=== PATIENT | male | born 1980 | race African-American/Black ===

== ENCOUNTER 2017-08-02 12:11 | Emergency (ER) | payer SELFPAY ==
[2017-08-02] MEDS ORDERED: KETOROLAC 60 MG/2 ML VIAL IM STA (12:54)
--- NOTE | 2017-08-02 12:55 | ED Physician Documentation ---
History of Present Illness - Stated complaint Stated Complaint: FOOT INJ - Chief complaint Chief Complaint: Ext Problem - History obtained from History obtained from: Patient, Friend - History of Present Illness Pain level max: 10 Pain level now: 10 - Additonal information Additional information: Patient is a 37-year-old gentleman from [facility] who states that he injured the left ankle when he slipped in a hole in [facility] one year ago. States that since that time he has had intermittent pain to the ankle. Yesterday went for a long bike ride and does not normally right a bicycle, today was unable to walk on the left ankle. Has not taken anything for the pain. No fevers. No swelling. Better with rest. Worse with movement. Review of Systems Constitutional: denies: Fever, Chills Respiratory: denies: Cough GI: denies: Nausea, Vomiting, Diarrhea Skin: denies: Rash Musculoskeletal: denies: Neck pain, Back pain Neurologic: denies: Headache PD PAST MEDICAL HISTORY - Past Medical History Past Medical History: No - Past Surgical History Past Surgical History: No - Present Medications Home Medications: Ambulatory Orders Medication Instructions Recorded Confirmed Meloxicam [Mobic] 7.5 mg PO BID PRN #20 tablet 08/02/17 - Allergies Allergies/Adverse Reactions: Allergies Allergy/AdvReac Type Severity Reaction Status Date / Time No Known Drug Allergies Allergy Verified 08/02/17 12:16 - Social History Does the pt smoke?: No Smoking Status: Never smoker Does the pt drink ETOH?: No Does the pt have substance abuse?: No PD ED PE NORMAL - Vitals Vital signs reviewed: Yes - General General: Alert and oriented X 3, No acute distress - Derm Derm: Warm and dry - Extremities Extremities: Other (Mild tenderness to palpation along the medial aspect of the left ankle. No bony tenderness. Limited range of motion secondary to pain. Pain is worse with active range of motion and passive range of motion. No joint effusion. Normal skin. No evidence of infection) - Neuro Neuro: Alert and oriented X 3 - Psych Psych: Normal mood, Normal affect Results - Vitals Vitals: Vital Signs - 24 hr 08/02/17 08/02/17 12:14 13:44 Temperature 36.4 C L 36.8 C Heart Rate 65 60 Respiratory 16 18 Rate Blood Pressure 117/76 109/76 O2 Saturation 99 100 - Rads (name of study) L ankle xray Radiology: Prelim report reviewed, EMP read contemporaneously, See rad report ( Subchondral lucency in lateral talar dome. Differential diagnosis includes degenerative subchondral geode or osteochondritis dissecans. No acute fracture or subluxation. ) PD MEDICAL DECISION MAKING - ED course Complexity details: reviewed results, re-evaluated patient, considered differential, d/w patient ED course: Patient is a 37 year old male with a subchondral geode vs osteochondritis dessicans in the L ankle. No evidence of acute fracture or dislocation. No septic joint. No gout. Pain improved with toradol. Placed in a walking boot and will have him follow-up with orthopedics. Pain well controlled. Patient counseled regarding signs and symptoms for which I believe and urgent re- evaluation would be necessary. Patient with good understanding of and agreement to plan and is comfortable going home at this time This document was made in part using voice recognition software. While efforts are made to proofread this document, sound alike and grammatical errors may occur. Departure - Departure Disposition: 01 Home, Self Care Clinical Impression: Osteochondritis dissecans Condition: Good Instructions: ED Degenerative Joint Disease Follow-Up: [facility] [Provider Group] - Within 1 week Prescriptions: Meloxicam [Mobic] 7.5 mg PO BID PRN #20 tablet PRN Reason: pain Comments: Return if you worsen. You can wear the boot for the next few days, then start to gently range your ankle to maintain mobility. You should not be in the boot all the time. Make sure to follow up with orthopedics closely for further care. Discharge Date/Time: 08/02/17 13:44
[2017-08-02] MEDS ORDERED: KETOROLAC 60 MG/2 ML VIAL ONE (13:01)
--- NOTE | 2017-08-02 13:09 | XRAY Preliminary Report ---
Exam: XR Ankle 3 View LT IMPRESSION: 1. Subchondral lucency in lateral talar dome. Differential diagnosis includes degenerative subchondra l geode or osteochondritis dissecans. No acute fracture or subluxation. [facility] SITE ID: [id number]
--- NOTE | 2017-08-02 13:12 | XRAY Report ---
EXAM: LEFT ANKLE RADIOGRAPHY EXAM DATE: 08/02/2017 01:01 PM. CLINICAL HISTORY: Old injury 1 year ago, pain today with flex/extens. COMPARISON: None. TECHNIQUE: 3 views. FINDINGS: Bones: There is a subchondral lucency in the lateral aspect of the talar dome. The overlying cortex a ppears intact on radiograph. No acute fracture. Joints: Normal. No effusion. No subluxations. The ankle mortise is normally aligned. Soft Tissues: Normal. No soft tissue swelling. IMPRESSION: 1. Subchondral lucency in lateral talar dome. Differential diagnosis includes degenerative subchondra l geode or osteochondritis dissecans. No acute fracture or subluxation. [facility] Referring Provider Line: [phone] SITE ID: [id number]
[2017-08-02 13:45] VITALS: BP 109/76
== END 2017-08-02 13:44 | disposition home or self-care (01) ==
LOC: ED 12:11
DX: M93.272 Osteochondritis dissecans, left ankle and joints of left foot (principal)
CPT/HCPCS: 96372; 99283

== ENCOUNTER 2018-03-07 15:28 | Outpatient (CLI) | payer MEDICAID ==
--- NOTE | 2018-03-07 16:07 | XRAY Report ---
THREE VIEW LEFT ANKLE: 03/07/2018 CLINICAL INDICATION: Joint pain. COMPARISON: 08/02/2017. FINDINGS: AP, lateral, oblique views of the left ankle demonstrate no evidence of fracture or dislocation. The joint spaces are preserved. Focal lucency in the lateral talar dome is again noted, likely representing a small osteochondral defect. If clinically warranted, MRI may be helpful in further evaluation. IMPRESSION: POSSIBLE OSTEOCHONDRAL DEFECT IN THE TALAR DOME, STABLE. NO EVIDENCE OF ACUTE FRACTURE. TD: 03/07/2018 16:06
== END 2018-03-07 15:29 | disposition home or self-care (01) ==
LOC: EDBD → DI.S 15:28
PROVIDERS: ATTEND Nurse Practitioner Family
DX: M25.572 Pain in left ankle and joints of left foot (principal)

== ENCOUNTER 2018-04-12 09:38 | Outpatient (CLI) | payer MEDICAID ==
--- NOTE | 2018-04-12 12:35 | CT Report ---
EXAM: LEFT KNEE CT WITHOUT CONTRAST EXAM DATE: 04/12/2018 10:06 AM. CLINICAL HISTORY: Nondisplaced dome fracture of unspecified talus. COMPARISON: Radiographs 03/07/2018. TECHNIQUE: Thin-section axial images were acquired of the knee without contrast. Post-processing: Cor onal and sagittal reformats. Other: None. In accordance with CT protocol optimization, one or more of the following dose reduction techniques w ere utilized for this exam: automated exposure control, adjustment of mA and/or KV based on patient s ize, or use of iterative reconstructive technique. FINDINGS: Bones and articular surfaces: There is an area of irregularity of the subchondral bone plate with clu stered subchondral cyst formation at the lateral dome of the talus measuring approximately 1.0 x 1.4 cm. Smaller focus of defect at the subchondral bone plate with underlying subchondral cyst formation at the medial dome of the talus approximately 0.3 cm [id number] and 1.2 cm anteroposterior. Flat jim ne fragment abutting the anterior margin of the dome of the talus approximately 0.9 x 0.2 x 0.6 cm. T his may represent a chronic displaced osteochondral fragment or other avulsion fragment. No acute fra cture identified. Musculotendinous structures: Visualized flexor and extensor tendons appear intact. Achilles tendon an d plantar fascia appear intact. No muscle atrophy or fatty replacement within the [id number]. IMPRESSION: 1. Osteochondral lesions over the medial greater than lateral dome of the talus. 2. Chronic-appearing bone fragment at the anterior margin of the tibiotalar joint most consistent wit h displaced osteochondral fragment measuring 0.9 x 0.2 x 0.6 cm. 3. No acute fracture identified. [facility] Referring Provider Line: [phone] SITE ID: [id number]
== END 2018-04-12 09:39 | disposition home or self-care (01) ==
LOC: DI 09:38
PROVIDERS: ATTEND Orthopaedic Surgery
DX: S92.14 Dome fracture of talus (principal)

== ENCOUNTER 2018-05-03 08:00 | Outpatient (CLI) | payer MEDICAID ==
[2018-05-04 11:50] LABS: CHOL/HDL RATIO 3.8 (<5.0); CHOLESTEROL 138 mg/dL; HDL CHOLESTEROL 36 mg/dL; LDL CHOLESTEROL,CALCULATED 93 mg/dL; LDL/HDL RATIO 2.6 (<3.6); VLDL CHOLESTEROL 9 mg/dL
[2018-05-05 13:42] LABS: HEPATITIS C ANTIBODY NON-REACTIVE (NON-REACTIVE)
[2018-05-05 14:37] LABS: HIV AG/AB 4TH GEN NON-REACTIVE (NON-REACTIVE)
[2018-05-06 11:56] LABS: HSV 2 IGG TYPE SPECIFIC AB <0.90 index
== END 2018-05-03 08:01 | disposition home or self-care (01) ==
LOC: LAB.F 08:00
PROVIDERS: ATTEND Nurse Practitioner Family
DX: Z13.220 Encounter for screening for lipoid disorders (principal); Z72.51 High risk heterosexual behavior
CPT/HCPCS: 36415; 80061; 81599; 83721; 86695; 86696; 86803; 87389; 87491; 87591

== ENCOUNTER 2018-05-03 19:51 | Emergency (ER) | payer MEDICAID ==
[2018-05-03 20:02] VITALS: BP 119/72
[2018-05-03 21:28] LABS: BASOPHILS % (AUTO) 0.6 %; HGB - HEMOGLOBIN 14.9 g/dL (14.0-18.0); LYMPHOCYTES # (AUTO) 1.4 10^3/uL (1.5-3.5); LYMPHOCYTES % (AUTO) 40.1 %; MEAN CORPUSCULAR HEMOGLOBIN 26.8 pg (27.0-31.0); MEAN CORPUSCULAR HGB CONC 32.5 g/dL (32.0-36.0); MEAN CORPUSCULAR VOLUME 82.3 fL (80.0-94.0); MEAN PLATELET VOLUME 8.1 fL (7.4-11.4); MONOCYTES # (AUTO) 0.4 10^3/uL (0.0-1.0); MONOCYTES % (AUTO) 11.9 %; NEUTROPHILS # (AUTO) 1.7 10^3/uL (1.5-6.6); NEUTROPHILS % (AUTO) 46.4 %; PLT - PLATELET COUNT 151 10^3/uL (130-450); RED BLOOD COUNT 5.58 10^6/uL (4.70-6.10); RED CELL DISTRIBUTION WIDTH 14.8 % (12.0-15.0); WHITE BLOOD COUNT 3.6 x10^3/uL (4.8-10.8)
[2018-05-03 21:32] LABS: INR 1.3 (0.8-1.2); PT - PROTHROMBIN TIME 14.2 secs (9.9-12.6)
[2018-05-03 21:39] LABS: ALBUMIN 4.2 g/dL (3.2-5.5); ALBUMIN/GLOBULIN RATIO 1.2 (1.0-2.2); BILIRUBIN,TOTAL 0.8 mg/dL (0.2-1.0); CALCIUM 9.3 mg/dL (8.5-10.3); CREATININE 0.8 mg/dL (0.6-1.2); TOTAL PROTEIN 7.6 g/dL (6.7-8.2)
--- NOTE | 2018-05-03 21:48 | ED Physician Documentation ---
PD HPI HEENT - Stated complaint Stated Complaint: NOSE BLEED - Chief complaint Chief Complaint: Neuro - History obtained from History obtained from: Patient - History of Present Illness Timing - onset: Today Timing - details: Intermittant Location: Nose Similar symptoms before: No diagnosis Recently seen: Clinic - Additional information Additional information: Patient is a 38 year old male who is presenting to the emergency department for nosebleed. Patient states that it has happened four times over the last couple for days. Patient denies any trauma and states that the symptoms go away with mild pressure. Patient saw his pmd who told him to come to the emergency department. Upon initial evaluation in the emergency department patient was well appearing and in no distress. there was no active bleeding. Review of Systems Ten Systems: 10 systems reviewed and negative Nose: reports: Epistaxis PD PAST MEDICAL HISTORY - Past Surgical History Past Surgical History: No - Present Medications Home Medications: Ambulatory Orders Medication Instructions Recorded Confirmed Meloxicam [Mobic] 7.5 mg PO BID PRN #20 tablet 08/02/17 - Allergies Allergies/Adverse Reactions: Allergies Allergy/AdvReac Type Severity Reaction Status Date / Time No Known Drug Allergies Allergy Verified 08/02/17 12:16 - Social History Does the pt smoke?: No Smoking Status: Never smoker Does the pt drink ETOH?: No Does the pt have substance abuse?: No PD ED PE NORMAL - Vitals Vital signs reviewed: Yes - General General: Alert and oriented X 3, No acute distress - HEENT HEENT: Atraumatic, Moist mucous membranes - Cardiac Cardiac: RRR - Respiratory Respiratory: No respiratory distress - Abdomen Abdomen: Non distended - Derm Derm: Normal color - Extremities Extremities: No deformity - Neuro Neuro: Alert and oriented X 3, No motor deficit, Normal speech Eye Opening: Spontaneous PD ED PE EXPANDED - HEENT HEENT: No: Right nares epsitaxis, Left nares epistaxis Results - Vitals Vitals: Vital Signs - 24 hr 05/03/18 19:57 Heart Rate 59 L Respiratory 16 Rate Blood Pressure 119/72 O2 Saturation 100 Oxygen O2 Source Room air - Labs Labs: Laboratory Tests 05/03/18 05/03/18 05/03/18 21:22 21:22 21:22 WBC 3.6 L RBC 5.58 Hgb 14.9 Hct 45.9 MCV 82.3 MCH 26.8 L MCHC 32.5 RDW 14.8 Plt Count 151 MPV 8.1 Neut # (Auto) 1.7 Lymph # (Auto) 1.4 L [place] # (Auto) 0.4 Eos # (Auto) 0.0 Baso # (Auto) 0.0 Absolute Nucleated RBC 0.00 Nucleated RBC % 0.1 PT 14.2 H INR 1.3 H APTT 27.2 Sodium 138 Potassium 3.4 L Chloride 104 Carbon Dioxide 27 Anion Gap 7.0 BUN 15 Creatinine 0.8 Estimated GFR (MDRD) 132 Glucose 111 H Calcium 9.3 Total Bilirubin 0.8 AST 24 ALT 23 Alkaline Phosphatase 42 Total Protein 7.6 Albumin 4.2 Globulin 3.4 Albumin/Globulin Ratio 1.2 Lipase 18 L PD MEDICAL DECISION MAKING - ED course Complexity details: reviewed old records, reviewed results, re-evaluated patient , considered differential, d/w patient ED course: Patient was seen and examined at bedside. patient was well appearing and in no distress. patient's diagnostics were all within normal limits. Patient required no further work up and was stable for discharge with outpatient followup. - Sepsis Event Vital Signs: Vital Signs - 24 hr 05/03/18 19:57 Heart Rate 59 L Respiratory 16 Rate Blood Pressure 119/72 O2 Saturation 100 Oxygen O2 Source Room air Departure - Departure Disposition: 01 Home, Self Care Clinical Impression: Epistaxis not due to trauma Condition: Good Instructions: ED Nosebleed Follow-Up: primary,care provider [Other] - Within 1 week Comments: Your diagnostics today were within normal limits. there is no sign of significant clotting disorder. You should keep the inside of your nose moist with vaseline, or a vaseline type solution. You should follow up with your doctor if your symptoms persist. You may return to the emergency department at any time for new, worsening or uncontrollable symptoms. Discharge Date/Time: 05/03/18 22:00
== END 2018-05-03 22:00 | disposition home or self-care (01) ==
LOC: ED 19:51
DX: R04.0 Epistaxis (principal); Z13.220 Encounter for screening for lipoid disorders; Z72.51 High risk heterosexual behavior
CPT/HCPCS: 36415; 80053; 80061; 81599; 83690; 83721; 85025; 85610; 85730; 86592; 86695; 86696; 86803; 87389; 87491; 87591; 99283

== ENCOUNTER 2019-01-22 21:27 | Emergency (ER) | payer MEDICAID ==
[2019-01-22] MEDS ORDERED: ACETAMINOPHEN 1,000 MG/100 ML 100 ML IV STA (21:37)
[2019-01-22] MEDS ORDERED: SODIUM CHLORIDE 0.9% 1,000 ML IV ONE (21:37)
[2019-01-22] MEDS ORDERED: HYDROmorphone 1 MG/ML CARPUJECT IVP STA (21:37)
--- NOTE | 2019-01-22 21:42 | ED Physician Documentation ---
PD HPI ALTERED MENTAL STATUS - Stated complaint Stated Complaint: BACK PX - Chief complaint Chief Complaint: Fever - History obtained from History obtained from: Friend, EMS - History of Present Illness Timing - onset: Today Timing - details: Still present, Still present in ED Quality / character: Agitated Associated symptoms: Fever Basline status: Alert and oriented X 3, Ambulatory, Independent Recently seen: Not recently seen - Additional information Additional information: BIBA. Patient is unable to contribute to HPI/ROS or cooperate with physical exam due to agitation and confusion. Per patient's friend (who is at bedside in ED), patient lives in a trailer on friend's property. Patient called the friend too saying he felt "sick" and wanted to go to the hospital. Patient's friend says he has known patient for approximately 2 years and has never seen him act anything like this. Friend says patient is quite sabianism and completely eschews alcohol and drugs. Review of Systems Unable to obtain: AMS PD PAST MEDICAL HISTORY - Past Medical History Past Medical History: No - Past Surgical History Past Surgical History: No - Present Medications Home Medications: Ambulatory Orders Medication Instructions Recorded Confirmed Meloxicam [Mobic] 7.5 mg PO BID PRN #20 tablet 08/02/17 - Allergies Allergies/Adverse Reactions: Allergies Allergy/AdvReac Type Severity Reaction Status Date / Time No Known Drug Allergies Allergy Verified 08/02/17 12:16 - Social History Does the pt smoke?: No Smoking Status: Never smoker Does the pt drink ETOH?: No Does the pt have substance abuse?: No PD ED PE NORMAL - Vitals Vital signs reviewed: Yes - General General: Well developed/nourished, Other (awake, alert. keeps eyes closed. frequently shaking in bed (not rhythmic or coordinated movements), occasionally calling out as if uncomfortable or in pain. Occasionally asks for his mother to be called to tell her he is ok.) - HEENT HEENT: PERRL, EOMI - Neck Neck: Supple, no meningeal sign, No bony TTP - Cardiac Cardiac: No murmur - Respiratory Respiratory: No respiratory distress, Clear bilaterally - Abdomen Abdomen: Soft, Non tender - Back Back: No spinal TTP - Derm Derm: Normal color, Other (hot to touch; hypersenstive to any touch (calls out in pain whenever I put my hand on his skin; he says my hand is cold)) - Extremities Extremities: No deformity, Normal ROM s pain, No edema - Neuro Neuro: No motor deficit, No sensory deficit Eye Opening: To Voice Motor: Localizes to Pain Verbal: Confused (asked where he is right now, he says "in the car") GCS Score: 12 - Psych Psych: Other (odd behavior; asked to open eyes, he opens mouth. When I repeat, he says "that is my eye and it is open". I open his eyes and he says "that is my mouth". ) PD ED PE EXPANDED - Eyes Eyes: Injected conj/sclera - Cardiac Cardiac: Tachy Results - Vitals Vitals: Vital Signs - 24 hr 01/22/19 01/22/19 01/22/19 21:30 22:03 23:01 Temperature 38.3 C H 39.4 C H 38.6 C H Heart Rate 121 H 117 H 115 H Respiratory 28 H 24 24 Rate Blood Pressure 143/94 H 126/70 103/66 O2 Saturation 99 99 99 01/23/19 01/23/19 01/23/19 00:24 01:58 02:57 Temperature 37.7 C H Heart Rate 97 96 88 Respiratory 24 25 H 20 Rate Blood Pressure 124/79 128/52 L 112/87 H O2 Saturation 100 99 98 01/23/19 01/23/19 04:00 05:11 Temperature 37.7 C H Heart Rate 95 93 Respiratory 20 20 Rate Blood Pressure 126/94 H 121/89 H O2 Saturation 97 98 Oxygen O2 Source Room air - Labs Labs: Microbiology 01/23/19 02:37 CSF Culture - Preliminary Cerebral Spinal Fluid 01/23/19 02:37 Gram Stain - Final Cerebral Spinal Fluid Laboratory Tests 01/22/19 01/22/19 01/22/19 21:47 21:47 22:05 WBC 6.3 RBC 5.68 Hgb 15.1 Hct 45.0 MCV 79.3 L MCH 26.6 L MCHC 33.6 RDW 14.1 Plt Count 143 MPV 8.6 Neut # (Auto) 4.5 Lymph # (Auto) 0.7 L [place] # (Auto) 1.1 H Eos # (Auto) 0.0 Baso # (Auto) 0.0 Absolute Nucleated RBC 0.00 Nucleated RBC % 0.1 Sodium 134 L Potassium 3.5 Chloride 100 L Carbon Dioxide 24 Anion Gap 10.0 BUN 19 Creatinine 1.0 Estimated GFR (MDRD) 101 Glucose 95 Lactic Acid 1.6 Calcium 8.9 Total Bilirubin 0.8 AST 36 ALT 27 Alkaline Phosphatase 45 Total Creatine Kinase CK-MB (CK-2) Troponin I Total Protein 8.1 Albumin 4.5 Globulin 3.6 Albumin/Globulin Ratio 1.3 Lipase 22 TSH Urine Color Urine Clarity Urine pH Ur Specific [place] Urine Protein Urine Glucose (UA) Urine Ketones Urine Occult Blood Urine Nitrite Urine Bilirubin Urine Urobilinogen Ur Leukocyte Esterase Ur Microscopic Review Urine Culture Comments CSF Color CSF Clarity Xanthrochromic CSF WBC CSF RBC CSF Cell Count Tube # CSF Glucose CSF Total Protein Salicylates < 6.0 Urine Opiates Screen Ur Oxycodone Screen Urine Methadone Screen Ur Propoxyphene Screen Acetaminophen < 10 L Ur Barbiturates Screen Ur Tricyclics Screen Ur Phencyclidine Scrn Ur Amphetamine Screen U Methamphetamines Scrn U Benzodiazepines Scrn Urine Cocaine Screen U Cannabinoids Screen Ethyl Alcohol < 5.0 Influenza A (Rapid) Influenza B (Rapid) 01/22/19 01/22/19 01/22/19 22:05 22:05 22:05 WBC RBC Hgb Hct MCV MCH MCHC RDW Plt Count MPV Neut # (Auto) Lymph # (Auto) [place] # (Auto) Eos # (Auto) Baso # (Auto) Absolute Nucleated RBC Nucleated RBC % Sodium Potassium Chloride Carbon Dioxide Anion Gap BUN Creatinine Estimated GFR (MDRD) Glucose Lactic Acid Calcium Total Bilirubin AST ALT Alkaline Phosphatase Total Creatine Kinase 409 H CK-MB (CK-2) 3.0 Troponin I < 0.04 Total Protein Albumin Globulin Albumin/Globulin Ratio Lipase TSH 1.90 Urine Color Urine Clarity Urine pH Ur Specific [place] Urine Protein Urine Glucose (UA) Urine Ketones Urine Occult Blood Urine Nitrite Urine Bilirubin Urine Urobilinogen Ur Leukocyte Esterase Ur Microscopic Review Urine Culture Comments CSF Color CSF Clarity Xanthrochromic CSF WBC CSF RBC CSF Cell Count Tube # CSF Glucose CSF Total Protein Salicylates Urine Opiates Screen Ur Oxycodone Screen Urine Methadone Screen Ur Propoxyphene Screen Acetaminophen Ur Barbiturates Screen Ur Tricyclics Screen Ur Phencyclidine Scrn Ur Amphetamine Screen U Methamphetamines Scrn U Benzodiazepines Scrn Urine Cocaine Screen U Cannabinoids Screen Ethyl Alcohol Influenza A (Rapid) Influenza B (Rapid) 01/22/19 01/22/19 01/23/19 22:05 23:35 02:37 WBC RBC Hgb Hct MCV MCH MCHC RDW Plt Count MPV Neut # (Auto) Lymph # (Auto) [place] # (Auto) Eos # (Auto) Baso # (Auto) Absolute Nucleated RBC Nucleated RBC % Sodium Potassium Chloride Carbon Dioxide Anion Gap BUN Creatinine Estimated GFR (MDRD) Glucose Lactic Acid Calcium Total Bilirubin AST ALT Alkaline Phosphatase Total Creatine Kinase CK-MB (CK-2) Troponin I Total Protein Albumin Globulin Albumin/Globulin Ratio Lipase TSH Urine Color YELLOW Urine Clarity CLEAR Urine pH 7.0 Ur Specific [place] 1.010 Urine Protein NEGATIVE Urine Glucose (UA) NEGATIVE Urine Ketones NEGATIVE Urine Occult Blood NEGATIVE Urine Nitrite NEGATIVE Urine Bilirubin NEGATIVE Urine Urobilinogen 0.2 (NORMAL) Ur Leukocyte Esterase NEGATIVE Ur Microscopic Review NOT INDICATED Urine Culture Comments NOT INDICATED CSF Color COLORLESS CSF Clarity CLEAR Xanthrochromic ABSENT CSF WBC 0 CSF RBC 15 H CSF Cell Count Tube # CSF TUBE# 3 CSF Glucose 66 CSF Total Protein 28 Salicylates Urine Opiates Screen NEGATIVE Ur Oxycodone Screen NEGATIVE Urine Methadone Screen NEGATIVE Ur Propoxyphene Screen NEGATIVE Acetaminophen Ur Barbiturates Screen NEGATIVE Ur Tricyclics Screen NEGATIVE Ur Phencyclidine Scrn NEGATIVE Ur Amphetamine Screen NEGATIVE U Methamphetamines Scrn NEGATIVE U Benzodiazepines Scrn NEGATIVE Urine Cocaine Screen NEGATIVE U Cannabinoids Screen NEGATIVE Ethyl Alcohol Influenza A (Rapid) Negative Influenza B (Rapid) Negative - Rads (name of study) CT head Radiology: Prelim report reviewed, See rad report chest xray Radiology: Prelim report reviewed, See rad report PD MEDICAL DECISION MAKING - ED course Complexity details: reviewed results, re-evaluated patient, considered differential, d/w patient ED course: CXR, UA, blood tests, flu swab are nondiagnostic. He has no abdominal tenderness and abdomen is soft and not distended. There are no abnormalities of skin that might be source for fever. Considering his high fever without a source and altered mental status, lumbar puncture was attempted by me. Unfortunately, my attempt was unsuccessful and thus I consulted anesthesiology and Dr. Mendieta came to ED and performed the LP successfully. CSF testing is also reassuring. By this time (several hours in ED), he exhibited gradually improving mental status and by the time of the CSF results, he is awake, alert, and conversant. He answers appropriately and only c/o fatigue and generalized aches. He is able to ambulate to and from bathroom without difficulty or assistance. He does not recall coming to ED last night. I reviewed test results with patient. He is comfortable with d/c home and understands he needs to return if worse in any way. Afebrile at time of discharge. Departure - Departure Disposition: 01 Home, Self Care Clinical Impression: Fever Condition: Good Instructions: ED Fever Unconf Cause, ED Fever Control Follow-Up: [facility] [Provider Group] [facility] [Provider Group] Discharge Date/Time: 01/23/19 05:57
[2019-01-22] MEDS ORDERED: LORazepam 2 MG/ML VIAL IVP STA (21:50)
[2019-01-22 21:51] LABS: BASOPHILS % (AUTO) 0.4 %; EOSINOPHILS % (AUTO) 0.2 %; HGB - HEMOGLOBIN 15.1 g/dL (14.0-18.0); LYMPHOCYTES # (AUTO) 0.7 10^3/uL (1.5-3.5); LYMPHOCYTES % (AUTO) 11.2 %; MEAN CORPUSCULAR HEMOGLOBIN 26.6 pg (27.0-31.0); MEAN CORPUSCULAR HGB CONC 33.6 g/dL (32.0-36.0); MEAN CORPUSCULAR VOLUME 79.3 fL (80.0-94.0); MEAN PLATELET VOLUME 8.6 fL (7.4-11.4); MONOCYTES # (AUTO) 1.1 10^3/uL (0.0-1.0); MONOCYTES % (AUTO) 17.3 %; NEUTROPHILS # (AUTO) 4.5 10^3/uL (1.5-6.6); NEUTROPHILS % (AUTO) 70.9 %; PLT - PLATELET COUNT 143 10^3/uL (130-450); RED BLOOD COUNT 5.68 10^6/uL (4.70-6.10); RED CELL DISTRIBUTION WIDTH 14.1 % (12.0-15.0); WHITE BLOOD COUNT 6.3 x10^3/uL (4.8-10.8)
--- NOTE | 2019-01-22 22:10 | XRAY Report ---
Reason: fever Procedure Date: 01/22/2019 Accession Number: [id number] / [id number] Procedure: XR - Chest 1 View X-Ray CPT Code: 92463 FULL RESULT: EXAM: CHEST RADIOGRAPHY EXAM DATE: 01/22/2019 09:58 PM. CLINICAL HISTORY: Fever. COMPARISON: None. TECHNIQUE: 1 view. FINDINGS: Lungs/Pleura: No consolidation, pleural effusion or pneumothorax. Mediastinum: Within exam limitations, the cardiomediastinal contour is normal. IMPRESSION: No acute findings. [facility]
[2019-01-22 22:30] LABS: TROPONIN I < 0.04 ng/mL (<0.49)
[2019-01-22 22:52] LABS: ACETAMINOPHEN < 10 ug/mL (10-30); ALBUMIN 4.5 g/dL (3.2-5.5); ALBUMIN/GLOBULIN RATIO 1.3 (1.0-2.2); ALKALINE PHOSPHATASE 45 IU/L (42-121); ALT ALANINE AMINOTRANSFERASE 27 IU/L (10-60); AST ASPARTATE AMINOTRANSFERASE 36 IU/L (10-42); BILIRUBIN,TOTAL 0.8 mg/dL (0.2-1.0); BUN - BLOOD UREA NITROGEN 19 mg/dL (6-20); CALCIUM 8.9 mg/dL (8.5-10.3); CARBON DIOXIDE - CO2 24 mmol/L (21-32); CHLORIDE 100 mmol/L (101-111); GFR - MDRD 101 (>89); GLUCOSE 95 mg/dL (70-100); LIPASE 22 U/L (22-51); SALICYLATE < 6.0 mg/dL; SODIUM 134 mmol/L (135-145); TOTAL PROTEIN 8.1 g/dL (6.7-8.2)
[2019-01-22] MEDS ORDERED: SODIUM CHLORIDE 0.9% 1,000 ML IV STA (23:29)
[2019-01-22 23:38] LABS: MUDS CUTOFF CONCENTRATIONS CUTOFF CONC BELOW:
[2019-01-22 23:40] LABS: BILIRUBIN,URINE NEGATIVE (NEGATIVE); GLUCOSE, URINE (UA) NEGATIVE (NEGATIVE); KETONES,URINE (UA) NEGATIVE (NEGATIVE); LEUKOCYTE ESTERASE, URINE NEGATIVE (NEGATIVE); NITRITE,URINE NEGATIVE (NEGATIVE); OCCULT BLOOD,URINE NEGATIVE (NEGATIVE); PROTEIN,URINE NEGATIVE (NEGATIVE); UROBILINOGEN,URINE 0.2 (NORMAL) E.U./dL (NORMAL)
[2019-01-22 23:43] LABS: CLARITY,URINE CLEAR (CLEAR)
[2019-01-22 23:52] LABS: AMPHETAMINE SCREEN,URINE NEGATIVE (NEGATIVE); BENZODIAZEPINES SCREEN, URINE NEGATIVE (NEGATIVE); COCAINE SCREEN URINE NEGATIVE (NEGATIVE); METHADONE SCREEN, URINE NEGATIVE (NEGATIVE); METHAMPHETAMINES SCREEN, URINE NEGATIVE (NEGATIVE); OPIATE SCREEN, URINE NEGATIVE (NEGATIVE); OXYCODONE SCREEN, URINE NEGATIVE (NEGATIVE); PROPOXYPHENE SCREEN, URINE NEGATIVE (NEGATIVE); TRICYCLIC ANTIDEPRESSANT,URINE NEGATIVE (NEGATIVE)
--- NOTE | 2019-01-22 23:55 | CT Report ---
Reason: fever, AMS Procedure Date: 01/22/2019 Accession Number: [id number] / [id number] Procedure: CT - HEAD WO CPT Code: FULL RESULT: EXAM: CT HEAD EXAM DATE: 01/22/2019 11:20 PM. CLINICAL HISTORY: Fever, altered mental status. COMPARISON: None. TECHNIQUE: Multiaxial CT images were obtained from the foramen magnum to the vertex. Reformats: Sagittal and coronal. IV contrast: None. In accordance with CT protocol optimization, one or more of the following dose reduction techniques were utilized for this exam: automated exposure control, adjustment of mA and/or KV based on patient size, or use of iterative reconstructive technique. FINDINGS: Parenchyma: No intraparenchymal hemorrhage. No evidence of mass, midline shift, or CT findings of infarction. Elder-white differentiation is distinct. Extraaxial Spaces: Normal for age. No subdural or epidural collections identified. Ventricles: Normal in size and position. Sinuses and Orbits: Imaged paranasal sinuses, orbits, and mastoids show no significant abnormality with note of mild mucosal thickening in multiple sinuses. Bones: No evidence of fracture or calvarial defect. Other: None. IMPRESSION: No acute intracranial abnormality seen. [facility]
[2019-01-23] MEDS ORDERED: LIDOCAINE 1% 2 ML VIAL SUBQ STA ×2 (01:26→01:57)
--- NOTE | 2019-01-23 02:40 | ANESTHESIA PROCEDURE NOTE ---
Diagnosis: rule out meningitis Procedure: spinal tap Consent for Procedure(s) Verified and Reviewed: Yes Height and Weight: Height 5 ft 10 in Weight (kg) 83.915 kg Body Mass Index 26.5 Vital Signs: Temp Pulse Resp BP Pulse Ox 37.7 C H 96 25 H 128/52 L 99 01/23/19 00:24 01/23/19 01:58 01/23/19 01:58 01/23/19 01:58 01/23/19 01:58 Allergies No Known Drug Allergies Allergy (Verified 08/02/17 12:16) ASA classification: 2-Mild systemic disease Is this case an emergency?: Yes Anes. Procedure Start Time: 02:20 Anes. Procedure Stop Time: 02:35 Procedure Notes: called by ER doctor to assist in a spinal tap. Using sterile tecnique betadine prep times three one percent lidocaine as local one of two attempts at L 4-5 interspace a 20 gauge spinal needle was placed. the patient had a transient paresthesia on the first attempt . the csf was slightly blood tinged in the first sample.
[2019-01-23 02:59] LABS: CSF - GLUCOSE 66 mg/dL (45-70)
[2019-01-23 03:07] LABS: CLARITY,CSF CLEAR (CLEAR); COLOR,CSF COLORLESS (COLORLESS); CSF TUBE # CSF TUBE# 3; CSF XANTHOCHROMIA ABSENT (ABSENT)
[2019-01-23 03:08] LABS: RED BLOOD CELL,CSF 15 /mm^3 (0-1); WHITE BLOOD CELL,CSF 0 /mm^3 (0-5)
[2019-01-23 05:16] VITALS: BP 121/89
== END 2019-01-23 05:57 | disposition home or self-care (01) ==
LOC: ED 21:27
DX: R50.9 Fever, unspecified (principal); R41.82 Altered mental status, unspecified
CPT/HCPCS: 36415; 62270; 70450; 71045; 80053; 80306; 80307; 80320; 80329; 81003; 81599; 82550; 82553; 82945; 83605; 83690; 84157; 84443; 84484; 85025; 87040; 87070; 87205; 87275; 87276; 89051; 96361; 96365; 96375; 99284; J0131; J2060; 81001; 86695; 86696; 87086

== ENCOUNTER 2020-01-15 19:36 | Emergency (ER) | payer MEDICAID ==
[2020-01-15 21:36] VITALS: BP 121/76
--- NOTE | 2020-01-15 21:45 | XRAY Report ---
Reason: left 5th toe pain, left foot swelling Procedure Date: 01/15/2020 Accession Number: [id number] / [id number] Procedure: XR - Foot 3 View LT CPT Code: Final Report FULL RESULT: EXAM: LEFT FOOT RADIOGRAPHY EXAM DATE: 01/15/2020 09:33 PM. CLINICAL HISTORY: Left 5th toe pain, left foot swelling. COMPARISON: None. TECHNIQUE: 3 views. FINDINGS: Bones: No fracture or bone destruction. Joints: Normal. No subluxations. Soft Tissues: No foreign body or soft tissue gas. There is soft swelling of the fifth toe IMPRESSION: No bony abnormality. [facility]
--- NOTE | 2020-01-15 22:33 | ED Physician Documentation ---
History of Present Illness - Stated complaint Stated Complaint: L TOE SWELLING - Chief complaint Chief Complaint: Ext Problem - History obtained from History obtained from: Patient - History of Present Illness Quality: Dull Radiates to: LEFT LARTER ANKLE Improved by: REST Worsened by: AMBULATION - Additonal information Additional information: 40-year-old male presented to the emergency department for evaluation because of 2 to 3 days of left toe pain. Patient stated about a month ago, patient was wearing a new pair of boots and after 2 days of wearing it, he decided to throw it away because They were too small and did not fit his feet. He did not have toe pain until the last several days but he was not sure if was related to Wearing a new pair of unfitted shoes. He also had previous injury to his lateral proximal foot swellin as well. He denied fever or chills. He denies recent trauma. Pain was exacerbated by ambulation. Review of Systems Constitutional: denies: Fever, Chills Eyes: denies: Loss of vision Ears: denies: Ear pain Nose: denies: Rhinorrhea / runny nose Cardiac: denies: Chest pain / pressure, Palpitations Respiratory: denies: Dyspnea, Cough GI: denies: Abdominal Pain, Abdominal Swelling, Nausea, Vomiting Musculoskeletal: reports: Extremity pain. denies: Joint pain Neurologic: denies: Generalized weakness, Focal weakness, Numbness PD PAST MEDICAL HISTORY - Past Medical History Past Medical History: No - Past Surgical History Past Surgical History: No - Present Medications Home Medications: Ambulatory Orders Medication Instructions Recorded Confirmed Meloxicam [Mobic] 7.5 mg PO BID PRN #20 tablet 08/02/17 cephALEXin [Cephalexin] 500 mg PO QID #40 tablet 01/15/20 - Allergies Allergies/Adverse Reactions: Allergies Allergy/AdvReac Type Severity Reaction Status Date / Time No Known Drug Allergies Allergy Verified 08/02/17 12:16 - Social History Does the pt smoke?: No Smoking Status: Never smoker Does the pt drink ETOH?: No Does the pt have substance abuse?: No - POLST Patient has POLST: No PD ED PE NORMAL - Vitals Vital signs reviewed: Yes - General General: Alert and oriented X 3, No acute distress, Well developed/nourished - HEENT HEENT: Atraumatic - Cardiac Cardiac: RRR - Respiratory Respiratory: No respiratory distress - Abdomen Abdomen: Normal bowel sounds, Soft - Back Back: No CVA TTP - Derm Derm: Normal color, Warm and dry, No rash - Extremities Extremities: No deformity, Other (Tenderness to palpation of the left fifth toeAt the distal phalanx. Mild swelling to the left fifth toe was noted. There was noRed streaking. There was mildSwelling noted to the lateral aspect of the left foot without ankle effusion.) - Neuro Neuro: Alert and oriented X 3 Eye Opening: Spontaneous Motor: Obeys Commands - Psych Psych: Normal mood Results - Vitals Vitals: Oxygen O2 Source Room air PD MEDICAL DECISION MAKING - ED course Complexity details: re-evaluated patient, d/w patient ED course: 40-year-old male presented to the emergency department because of worsening pain to the left fifth toe. X-ray was obtained. Per radiologist: Soft Tissues: No foreign body or soft tissue gas. There is soft swelling of the fifth toe IMPRESSION: No bony abnormality. Laboratory findings are unremarkable. At this time, this is most consistent with inflammation versus early cellulitis. I recommended the patient to wait for another day, keep his foot elevated And use ibuprofen or Tylenol as needed for pain control. If symptoms do not improve in the next 24 hours, patient was instructed for him to go ahead and fill the antibiotic, which I will give him at the end of this visit, and start taking it. Outpatient follow up with his PCP in 3-5 days was recommended. Strict return instructions were given. He expressed verbal understanding. He was comfortable with the plan. He was discharged in stable condition. Departure - Departure Disposition: 01 Home, Self Care Clinical Impression: Cellulitis, Pain of lower extremity Condition: Stable Instructions: ED Infec Skin Cellulitis Follow-Up: [facility] [Provider Group] - Within 3 Days Prescriptions: cephALEXin [Cephalexin] 500 mg PO QID #40 tablet Comments: THE SWELLING TO YOUR LEFT LITTLE TOE CAN BE DUE TO AN INFECTION OR AN INFLAMMATION. PLEASE USE IBUPROFEN FOR PAIN CONTROL. IF SWELLING DOES NOT IMPROVE IN 24 HOURS, YOU CAN START TAKING YOUR PRESCRIPTION OF KEFLEX PRESCRIBED. PLEASE FOLLOW UP WITH YOUR DOCTOR AT [facility] FOR RECHECK IN 3-5 DAYS. PLEASE RETURN TO THE EMERGENCY DEPARTMENT IF YOU EXPERIENCE A FEVER OF 100.4 OR GREATER, WORSENING PAIN, SWELLING OR ANY NEW OR CONCERNING SYMPTOMS. Discharge Date/Time: 01/15/20 23:07
== END 2020-01-15 23:07 | disposition home or self-care (01) ==
LOC: ED 19:36
DX: L03.032 Cellulitis of left toe (principal); M79.675 Pain in left toe(s)
CPT/HCPCS: 99283; 99284

== ENCOUNTER → 2022-08-25 | Outpatient (CLI) | payer BC ==
[2022-08-25 23:21] LABS: CHLAMYDIA TRACHOMATIS DNA NEGATIVE (NEGATIVE); NEISSERIA GONORRHOEAE DNA NEGATIVE (NEGATIVE)
== END ==
LOC: LAB 08:00
PROVIDERS: ATTEND Physician Assistant Medical
DX: Z11.3 Encounter for screening for infections with a predominantly sexual mode of transmission (principal)
CPT/HCPCS: 87491; 87591; 87661

== ENCOUNTER 2022-08-26 12:22 | Outpatient (CLI) | payer BC, MEDICAID ==
[2022-08-27 05:10] LABS: HCV AB <0.1 s/co ratio (0.0-0.9)
[2022-08-27 07:10] LABS: HSV 2 IGG TYPE SPEC <0.91 index (0.00-0.90)
[2022-08-27 08:10] LABS: RPR Non Reactive (Non Reactive)
== END 2022-08-26 12:23 | disposition home or self-care (01) ==
LOC: LAB.S 12:22
PROVIDERS: ATTEND Physician Assistant Medical
DX: Z11.3 Encounter for screening for infections with a predominantly sexual mode of transmission (principal)
CPT/HCPCS: 86592; 86695; 86696; 86803; 87491; 87591; 87661

== ENCOUNTER 2022-10-02 11:59 | Outpatient (CLI) | payer BC ==
[2022-10-02 14:43] LABS: BASOPHILS % (AUTO) 0.3 %; EOSINOPHILS % (AUTO) 1.2 %; HCT - HEMATOCRIT 46.6 % (42.0-52.0); HGB - HEMOGLOBIN 14.5 g/dL (14.0-18.0); LYMPHOCYTES # (AUTO) 1.2 10^3/uL (1.5-3.5); MEAN CORPUSCULAR HEMOGLOBIN 26.1 pg (27.0-31.0); MEAN CORPUSCULAR HGB CONC 31.1 g/dL (32.0-36.0); MEAN PLATELET VOLUME 11.1 fL (7.4-11.4); MONOCYTES # (AUTO) 0.4 10^3/uL (0.0-1.0); MONOCYTES % (AUTO) 12.3 %; NEUTROPHILS # (AUTO) 1.7 10^3/uL (1.5-6.6); NEUTROPHILS % (AUTO) 51.2 %; PLT - PLATELET COUNT 195 10^3/uL (130-450); RED BLOOD COUNT 5.55 10^6/uL (4.70-6.10); RED CELL DISTRIBUTION WIDTH 14.6 % (12.0-15.0); WHITE BLOOD COUNT 3.3 x10^3/uL (4.8-10.8)
[2022-10-02 15:30] LABS: ALBUMIN 4.2 g/dL (3.2-5.5); ALBUMIN/GLOBULIN RATIO 1.2 (1.0-2.2); ALKALINE PHOSPHATASE 57 IU/L (42-121); ALT ALANINE AMINOTRANSFERASE 27 IU/L (10-60); AST ASPARTATE AMINOTRANSFERASE 23 IU/L (10-42); BILIRUBIN,TOTAL 0.3 mg/dL (0.2-1.0); BUN - BLOOD UREA NITROGEN 17 mg/dL (6-20); CALCIUM 9.1 mg/dL (8.5-10.3); CARBON DIOXIDE - CO2 26 mmol/L (21-32); CHLORIDE 103 mmol/L (101-111); CHOLESTEROL 191 mg/dL; CREATININE 0.8 mg/dL (0.6-1.2); GFR - MDRD 129 (>89); GLUCOSE 129 mg/dL (70-100); HDL CHOLESTEROL 32 mg/dL; LDL CHOLESTEROL,CALCULATED 102 mg/dL; LDL/HDL RATIO 3.2 (<3.6); POTASSIUM 3.7 mmol/L (3.5-5.0); SODIUM 137 mmol/L (135-145); TOTAL PROTEIN 7.8 g/dL (6.7-8.2); TRIGLYCERIDES 283 mg/dL; VLDL CHOLESTEROL 57 mg/dL
[2022-10-02 15:34] LABS: THYROID STIMULATING HORMONE 1.47 uIU/mL (0.34-5.60)
[2022-10-03 08:10] LABS: HIV SCREEN 4TH GENERATION Non Reactive (Non Reactive)
== END 2022-10-02 12:00 | disposition home or self-care (01) ==
LOC: LAB.S 11:59
PROVIDERS: ATTEND Registered Nurse
DX: Z13.228 Encounter for screening for other metabolic disorders (principal); Z11.3 Encounter for screening for infections with a predominantly sexual mode of transmission; Z71.89 Other specified counseling; Z12.5 Encounter for screening for malignant neoplasm of prostate; Z13.29 Encounter for screening for other suspected endocrine disorder; Z13.0 Encounter for screening for diseases of the blood and blood-forming organs and certain disorders involving the immune mechanism
CPT/HCPCS: 36415; 80053; 80061; 83721; 84153; 84443; 85025; 87389

== ENCOUNTER 2023-05-14 10:33 | Outpatient (CLI) | payer OTHER ==
--- NOTE | 2023-05-14 14:10 | XRAY Report ---
PROCEDURE: Ankle 3 View LT INDICATIONS: OSTEOARTHRITIS TECHNIQUE: 3 views of the ankle were acquired. COMPARISON: X-ray foot 01/15/2020 FINDINGS: Bones: No fractures or dislocations. Ankle mortise is normally aligned. No suspicious bony lesions . Soft tissues: No tibiotalar joint effusion. Achilles tendon appears normal. IMPRESSION: No acute bony abnormality. No appreciable arthritic change. Reviewed by: Brenda Agrawal MD on 05/14/2023 2:09 PM PDT Approved by: Brenda Agrawal MD on 05/14/2023 2:09 PM PDT Station ID: [id number]
--- NOTE | 2023-05-14 14:11 | XRAY Report ---
PROCEDURE: Shoulder 2 View RT INDICATIONS: RIGHT SHOULDER PAIN TECHNIQUE: 3 views of the shoulder were acquired. COMPARISON: None. FINDINGS: Bones: No fractures or dislocations. No suspicious bony lesions. Visualized ribs appear intact. Moderate acromioclavicular narrowing. Soft tissues: No suspicious soft tissue calcifications. IMPRESSION: No visualized acute fracture or dislocation. However, occult injury cannot be excluded. Recommend owen rt interval imaging follow-up in 7-10 days as clinically indicated for additional evaluation. Moderate acromioclavicular narrowing. Reviewed by: Brenda Agrawal MD on 05/14/2023 2:10 PM PDT Approved by: Brenda Agrawal MD on 05/14/2023 2:10 PM PDT Station ID: [id number]
[2023-05-14 14:46] LABS: BASOPHILS % (AUTO) 0.6 %; EOSINOPHILS # (AUTO) 0.1 10^3/uL (0.0-0.7); EOSINOPHILS % (AUTO) 1.5 %; HCT - HEMATOCRIT 45.1 % (42.0-52.0); HGB - HEMOGLOBIN 14.5 g/dL (14.0-18.0); LYMPHOCYTES # (AUTO) 1.3 10^3/uL (1.5-3.5); MEAN CORPUSCULAR HEMOGLOBIN 26.5 pg (27.0-31.0); MEAN CORPUSCULAR HGB CONC 32.2 g/dL (32.0-36.0); MEAN CORPUSCULAR VOLUME 82.4 fL (80.0-94.0); MEAN PLATELET VOLUME 11.3 fL (7.4-11.4); MONOCYTES # (AUTO) 0.5 10^3/uL (0.0-1.0); MONOCYTES % (AUTO) 15.2 %; NEUTROPHILS # (AUTO) 1.5 10^3/uL (1.5-6.6); NEUTROPHILS % (AUTO) 44.7 %; PLT - PLATELET COUNT 206 10^3/uL (130-450); RED BLOOD COUNT 5.47 10^6/uL (4.70-6.10); RED CELL DISTRIBUTION WIDTH 14.5 % (12.0-15.0); WHITE BLOOD COUNT 3.4 x10^3/uL (4.8-10.8)
[2023-05-14 15:12] LABS: ALBUMIN 4.1 g/dL (3.2-5.5); ALBUMIN/GLOBULIN RATIO 1.2 (1.0-2.2); ALKALINE PHOSPHATASE 45 IU/L (42-121); ALT ALANINE AMINOTRANSFERASE 33 IU/L (10-60); AST ASPARTATE AMINOTRANSFERASE 24 IU/L (10-42); BILIRUBIN,TOTAL 0.4 mg/dL (0.2-1.0); BUN - BLOOD UREA NITROGEN 16 mg/dL (6-20); CALCIUM 8.7 mg/dL (8.5-10.3); CARBON DIOXIDE - CO2 25 mmol/L (21-32); CHLORIDE 108 mmol/L (101-111); CHOL/HDL RATIO 5.2 (<5.0); CHOLESTEROL 182 mg/dL; CREATININE 0.8 mg/dL (0.6-1.2); GFR - MDRD 128 (>89); GLUCOSE 110 mg/dL (70-100); HDL CHOLESTEROL 35 mg/dL; LDL CHOLESTEROL,CALCULATED 89 mg/dL; LDL/HDL RATIO 2.5 (<3.6); POTASSIUM 3.9 mmol/L (3.5-5.0); SODIUM 139 mmol/L (135-145); TOTAL PROTEIN 7.4 g/dL (6.7-8.2); TRIGLYCERIDES 291 mg/dL; VLDL CHOLESTEROL 58 mg/dL
== END 2023-05-14 10:34 | disposition home or self-care (01) ==
LOC: DI.S 10:33
PROVIDERS: ATTEND Registered Nurse
DX: M19.272 Secondary osteoarthritis, left ankle and foot (principal); M93.272 Osteochondritis dissecans, left ankle and joints of left foot; M25.511 Pain in right shoulder; Z13.228 Encounter for screening for other metabolic disorders; Z13.220 Encounter for screening for lipoid disorders; Z13.29 Encounter for screening for other suspected endocrine disorder; Z13.0 Encounter for screening for diseases of the blood and blood-forming organs and certain disorders involving the immune mechanism
CPT/HCPCS: 36415; 80053; 80061; 83721; 84443; 85025